=== PATIENT | female | born 1935 | race Caucasian/White ===

== ENCOUNTER 2021-01-29 19:31 | Emergency (ER) | payer MEDICARE ==
[~2021-01-29] VITALS: Ht 149.9 cm; Wt 53.2 kg
[2021-01-29] MEDS ORDERED: MORPHINE SULFATE 4 MG/ML DISP.SYRIN. IV ONE (21:00)
[2021-01-29] MEDS ORDERED: ONDANSETRON PF 4 MG/2 ML VIAL. IVP ONE (21:00)
--- NOTE | 2021-01-29 21:17 | PHYS DOC ---
General Adult EDM: Chief Complaint: ABDOMINAL PAIN HPI: HPI: Patient is a 85-year-old female who presents with upper abdominal pain. Patient states "I felt very bloated and the pain is a burning pain that wraps around into my back". Patient states the pain started at 2:00 today and has been constant. Patient also reports constipation. Nothing exacerbates patient's abdominal pain or makes it better. Patient denies shortness of breath, chest pain. Patient states "on Thursday I was running 102 temperature and vomiting but it only lasted that day, Thursday morning I was back to normal". Patient has traveled here from [place] to stay with her daughter. Recently patient is history of hypertension, high cholesterol. (NORMA DESOUZA APRN) Review of Systems: Review of Systems: Constitutional: Denies fever or chills Eyes: Denies change in visual acuity HENT: Denies nasal congestion or sore throat Respiratory: Denies cough or shortness of breath Cardiovascular: Denies chest pain or edema GI: Reports upper abdominal pain that wraps around her back. Reports constipation. Denies nausea/vomiting/diarrhea. : Denies dysuria Musculoskeletal: Denies back pain or joint pain Integument: Denies rash Neurologic: Denies headache, focal weakness or sensory changes Endocrine: Denies polyuria or polydipsia Lymphatic: Denies swollen glands Psychiatric: Denies depression or anxiety (NORMA DESOUZA APRN) Current Medications: Current Meds: Current Medications Medications (Trade) Dose Ordered Sig/Kumar Start Time Stop Time Status Last Admin Dose Admin Morphine Sulfate (Morphine 4mg Syringe) 4 mg 1X ONCE 01/29/21 21:00 01/29/21 21:03 DC Ondansetron HCl (Zofran) 4 mg 1X ONCE 01/29/21 21:00 01/29/21 21:03 DC (NORMA DESOUZA APRN) Allergies: Allergies: Allergies Coded Allergies Type Severity Reaction Last Updated Verified Penicillins Allergy Unknown 01/29/21 Yes (NORMA DESOUZA APRN) Physical Exam: PE: Constitutional: Well developed, well nourished, no acute distress, non-toxic appearance. [] HENT: Normocephalic, atraumatic, bilateral external ears normal, oropharynx moist, no oral exudates, nose normal. [] Eyes: PERRLA, EOMI, conjunctiva normal, no discharge. [] Neck: Normal range of motion, no tenderness, supple, no stridor. [] Cardiovascular:Heart rate regular rhythm, no murmur [] Lungs & Thorax: Bilateral breath sounds clear to auscultation [] Abdomen: Bowel sounds normal, epigastric abdominal pain Skin: Warm, dry, no erythema, no rash. [] Back: No tenderness, no CVA tenderness. [] Extremities: No tenderness, no cyanosis, no clubbing, ROM intact, no edema. [] Neurologic: Alert and oriented X 3, normal motor function, normal sensory function, no focal deficits noted. [] Psychologic: Affect normal, judgement normal, mood normal. [] (NORMA DESOUZA APRN) EKG: EKG: [] (NORMA DESOUZA APRN) Radiology/Procedures: Radiology/Procedures: []Exam: Chest one view INDICATION: Chest pain and abdominal pain, dizziness TECHNIQUE: Frontal view of the chest Comparisons: None FINDINGS: Heart is mildly enlarged. Pulmonary vessels are within normal limits. The lung and pleural spaces are clear. IMPRESSION: No acute pulmonary process. Electronically signed by: Alexandr Lackey MD (01/29/2021 9:25 PM) [facility] Exam: CT of abdomen and pelvis without contrast INDICATION: Abdominal pain radiating to back, appendectomy TECHNIQUE: Sequential axial images through the abdomen and pelvis obtained wit hout IV contrast. Sagittal and coronal reformatted images were reconstructed from the axial data and reviewed. Exposure: One or more of the following in the visualized dose reduction techniques were utilized for this examination: 1. Automated exposure control 2. Adjustment of the MA and/or KV according to patient size 3. Use of iterative of reconstructive technique Comparisons: None FINDINGS: Heart is mildly enlarged. No pericardial effusion. Strandy opacities at dependent portion lungs likely representing atelectasis. Evaluation solid organs is limited secondary to noncontrast technique. There is moderate intrahepatic biliary ductal dilatation. Gallbladder is significantly dilated with gallstones. Common bile duct is dilated down to level the ampulla. There is a hyperdense stone noted at the distal common bile duct. Spleen, pancreas and adrenals are unremarkable. No perinephric inflammation or hydronephrosis. No renal or ureteral calculi. Bladder is partially distended and appears thin-walled. Uterus is not enlarged. No abnormal adnexal mass. Few scattered diverticula noted in the sigmoid colon without evidence of acute diverticulitis. Large amount stool is noted in the colon. Appendix is nonidentified. No free intra-abdominal air or fluid. No obstruction. Abdominal aorta has a normal course and caliber. No enlarged intra-abdominal lymph nodes are identified. No suspicious osseous fractures. IMPRESSION: Findings of choledocholithiasis. There is a 6 mm calcified gallstone at the distal common bile duct with upstream dilatation of the common bile duct, gallbladder and intrahepatic biliary ductal dilatation (NORMA DESOUZA APRN) Heart Score: C/O Chest Pain: No Risk Factors: Risk Factors: DM, Current or recent (<one month) smoker, HTN, HLP, family history of CAD, obesity. Risk Scores: Score 0 - 3: 2.5% MACE over next 6 weeks - Discharge Home Score 4 - 6: 20.3% MACE over next 6 weeks - Admit for Clinical Observation Score 7 - 10: 72.7% MACE over next 6 weeks - Early Invasive Strategies (NORMA DESOUZA APRN) Course & Med Decision Making: Course & Med Decision Making Pertinent Labs and Imaging studies reviewed. (See chart for details) [] 85-year-old female who presents with upper abdominal pain. Patient describes pain as a burning that wraps around into her back with bloating and constipation. Patient reports that pain started today around 2:00, and has been constant. Patient given 4 mg Zofran, [address] of abdomen shows choledocholithiasis with a 6 mm stone with obstruction. Total bili 1.9, AST 44, ALT 539, alkaline phosphate 384, lipase 66. Discussed CT results and admission plan with patient. Patient given Zosyn, NS bolus, 4mg Morphine, n.p.o., Blood cultures obtained. Spoke with Dr. Lyman at [facility] who is going to admit patient for Choledocholithiasis. Patient is appreciative and okay with admission plan. Transfer of patient care to Dr. Fuchs at [id number] (NORMA DESOUZA APRN) Course & Med Decision Making Agree with DELIVERY TECH's work-up and disposition (ANGEL FUCHS MD) Dragon Disclaimer: Dragon Disclaimer: This electronic medical record was generated, in whole or in part, using a voice recognition dictation system. (NORMA DESOUZA APRN) Departure Departure: Impression: Primary Impression: Choledocholithiasis Disposition: 02 SHORT TERM HOSPITAL Condition: STABLE Referrals: NON,STAFF (PCP) NORMA DESOUZA APRN Jan 29, 2021 21:17 ANGEL FUCHS MD Jan 29, 2021 23:36
--- NOTE | 2021-01-29 21:27 | RAD ---
Exam: Chest one view INDICATION: Chest pain and abdominal pain, dizziness TECHNIQUE: Frontal view of the chest Comparisons: None FINDINGS: Heart is mildly enlarged. Pulmonary vessels are within normal limits. The lung and pleural spaces are clear. IMPRESSION: No acute pulmonary process. Electronically signed by: Alexandr Lackey MD (01/29/2021 9:25 PM) [facility]
--- NOTE | 2021-01-29 21:27 | RAD ---
Exam: CT of abdomen and pelvis without contrast INDICATION: Abdominal pain radiating to back, appendectomy TECHNIQUE: Sequential axial images through the abdomen and pelvis obtained without IV contrast. Sagit misael and coronal reformatted images were reconstructed from the axial data and reviewed. Exposure: One or more of the following in the visualized dose reduction techniques were utilized for this examination: 1. Automated exposure control 2. Adjustment of the MA and/or KV according to patient size 3. Use of iterative of reconstructive technique Comparisons: None FINDINGS: Heart is mildly enlarged. No pericardial effusion. Strandy opacities at dependent portion lungs likel y representing atelectasis. Evaluation solid organs is limited secondary to noncontrast technique. There is moderate intrahepatic biliary ductal dilatation. Gallbladder is significantly dilated with g allstones. Common bile duct is dilated down to level the ampulla. There is a hyperdense stone noted a t the distal common bile duct. Spleen, pancreas and adrenals are unremarkable. No perinephric inflammation or hydronephrosis. No renal or ureteral calculi. Bladder is partially distended and appears thin-walled. Uterus is not enlarged. No abnormal adnexal m ass. Few scattered diverticula noted in the sigmoid colon without evidence of acute diverticulitis. Large amount stool is noted in the colon. Appendix is nonidentified. No free intra-abdominal air or fluid. No obstruction. Abdominal aorta has a normal course and caliber. No enlarged intra-abdominal lymph nodes are identified. No suspicious osseous fractures. IMPRESSION: Findings of choledocholithiasis. There is a 6 mm calcified gallstone at the distal common bile duct w ith upstream dilatation of the common bile duct, gallbladder and intrahepatic biliary ductal dilatati on Electronically signed by: Alexandr Lackey MD (01/29/2021 9:24 PM) [facility]
[2021-01-29 21:32] LABS: BASO % 0 % (0-3); EOS % 0 % (0-3); HEMATOCRIT 32.4 % (36.0-47.0); HEMOGLOBIN 10.9 g/dL (12.0-15.5); LYMPH # 0.5 x10^3/uL (1.0-4.8); LYMPH % 5 % (24-48); MEAN CORPUSCULAR HEMOGLOBIN 30 pg (25-35); MEAN CORPUSCULAR HGB CONC 34 g/dL (31-37); MEAN CORPUSCULAR VOLUME 90 fL (79-100); MONO % 9 % (0-9); NEUT # 8.7 x10^3uL (1.8-7.7); NEUT % 85 % (31-73); PLATELET COUNT 170 x10^3/uL (140-400); RED CELL DISTRIBUTION WIDTH 13.8 % (11.5-14.5); WHITE BLOOD COUNT 10.3 x10^3/uL (4.0-11.0)
[2021-01-29 21:52] LABS: ALBUMIN 3.7 g/dL (3.4-5.0); ALBUMIN/GLOBULIN RATIO 1.1 (1.0-1.7); CALCIUM 9.2 mg/dL (8.5-10.1); CREATININE 0.6 mg/dL (0.6-1.0); POTASSIUM 3.5 mmol/L (3.5-5.1); TOTAL BILIRUBIN 1.9 mg/dL (0.2-1.0); TOTAL PROTEIN 7.2 g/dL (6.4-8.2)
--- NOTE | 2021-01-29 21:54 | EKG ---
[address] [address] Test Date: 2021-01-29 Test Time: 21:17:14 Pat Name: DIMPLE CAMPOS Department: Room: Gender: F [employer]: : [id number] Requested By: NORMA DESOUZA Order Number: [id number] Reading MD: Measurements Intervals [place] Rate: 60 P: 59 AR: 188 QRS: 40 QRSD: 98 T: 56 QT: 436 QTc: 440 Interpretive Statements SINUS RHYTHM NORMAL ECG RI6.02 No previous ECG available for comparison
[2021-01-29] MEDS ORDERED: IV NORMAL SALINE 1,000ML 1,000 ML IV ONE (22:00)
[2021-01-29] MEDS ORDERED: PIPERACILLIN/TAZOBACTAM 3.375 GM in IV NORMAL SALINE 50ML 50 ML IV ONE (22:00)
[2021-01-29] MEDS ORDERED: PIPERACILLIN/TAZOBACTAM 3.375 GM VIAL IV ONE (22:26)
[2021-01-29] MEDS ORDERED: IV NORMAL SALINE 50ML 50 ML ONE (22:26)
[2021-01-30 00:30] VITALS: BP 150/73
== END 2021-01-30 00:40 | disposition short-term general hospital (02) ==
LOC: ER 19:31
DX: K80.50 Calculus of bile duct without cholangitis or cholecystitis without obstruction (principal); Z88.0 Allergy status to penicillin
CPT/HCPCS: 36415; 71045; 74176; 80053; 83690; 84484; 85025; 87040; 93005; 96365; 96375; 99285; J2270; J2405; J2543; J7030; 87205